=== PATIENT | female | born 1980 | race Caucasian/White ===

== ENCOUNTER → 2016-09-08 08:34 | Outpatient (CLI) | payer BC ==
[~2016-09-08 08:34] MED LIST: HYDROCODONE-APA1 TAB PO; VESTURA 3 MG-01 EACH PO; ZANTAC150 MG PO
[2016-09-08 09:39] LABS: HCG SERUM NEGATIVE (NEGATIVE)
== END | disposition home or self-care (01) ==
LOC: D.NM 08:34
PROVIDERS: Family Medicine
DX: R10.9 Unspecified abdominal pain (principal)

== ENCOUNTER 2016-10-13 06:38 | Day surgery (SDC) | payer BC ==
[~2016-10-13 06:38] MED LIST changes: -HYDROCODONE-APA1 TAB PO
[2016-10-13 07:22] LABS: BASOPHILS 0.6 % (0.0-2.0); EOSINOPHILS 2.1 % (0-7); HEMATOCRIT 37.4 % (36.0-48.0); HEMOGLOBIN 12.2 g/dL (12-16); IMMATURE GRANULOCYTES 0.4 % (0-5); LYMPHOCYTES 32.2 % (15-50); MCH 28.9 pg (26.0-34.0); MCHC 32.6 g/dL (31.0-37.0); MCV 88.6 fL (80.0-100.0); MEAN PLATELET VOLUME 10.3 fL (7.4-10.4); MONOCYTES 4.8 % (2-11); NEUTROPHILS 59.9 % (40-80); PLATELET COUNT 271 10x3/uL (130-400); RBC 4.22 10x6/uL (4.00-5.40); RDW 12.8 % (11.5-14.5); WBC 11.4 10x3/uL (4.8-10.8)
[2016-10-13 07:31] LABS: CALC OSMOLALITY 278 mosm/kg (275-300); CALCIUM 8.8 mg/dL (8.5-10.1); CHLORIDE - SERUM 105 mmol/L (98-107); CREATININE - SERUM 0.8 mg/dL (0.6-1.3); GLUCOSE 110 mg/dL (74-106); POTASSIUM - SERUM 3.9 mmol/L (3.5-5.1); SODIUM 139 mmol/L (136-145); UREA NITROGEN 13 mg/dL (7-18); eGFR NON AFRICAN AMERICAN 85 mL/min (90-120)
[2016-10-13 07:57] VITALS: BP 133/101; BMI 47.1
[2016-10-13 08:05] LABS: HCG URINE NEGATIVE (NEGATIVE)
[2016-10-13] MEDS ORDERED: HYDROCODONE-APA1 TAB PO (12:48)
--- NOTE | 2016-10-13 15:30 | NUR ---
STATES FEELS MUCH BETTER. DENIES NAUSEA, TAKING SIPS OF LIQUIDS. STATES PAIN IS BETTER. IV REMOVED INTACT. DISCHARGE INSTRUCTIONS AND RX GIVEN, VOICED UNDERSTANDING. DISCHARGED HOME VIA WC.
--- NOTE | 2016-11-08 14:51 | OP ---
PATIENT NAME: JANE HACKETT MEDICAL RECORD: [id number] :78 LOCATION:D.OPS ADMISSION DATE: SURGEON: TREVOR ACUNA MD DATE OF OPERATION: 10/13/2016 PREOPERATIVE DIAGNOSES: 1. Biliary dyskinesia. 2. Hypercholesterolemia. 3. Morbid obesity. 4. Arthritis. POSTOPERATIVE DIAGNOSES: 1. Biliary dyskinesia. 2. Hypercholesterolemia. 3. Morbid obesity. 4. Arthritis. PROCEDURE: Laparoscopic cholecystectomy. SURGEON: Trevor Acuna MD. REPORT OF PROCEDURE: The patient's abdomen was prepped and draped in sterile fashion. A cutdown was made on the superior aspect of the umbilicus, 0 Vicryls were placed on the fascia bilaterally and the fascia was incised with 15-blade. I then bluntly entered the peritoneal cavity and placed a 12-mm Fadi port. Under direct visualization, a 5-mm trocar was placed in the epigastrium and 2 more 5-mm trocars were placed in the right subcostal region. There were some inflammatory fatty adhesions around the gallbladder up against the liver. These were all teased down carefully with electrocautery and blunt dissection. At this point, I could clearly visualize the patient's gallbladder. The cystic artery and cystic duct were dissected free. These were clipped proximally and distally and ligated in standard fashion. The gallbladder was then taken off the liver bed using electrocautery and placed into an Endo Catch bag. At this point, the right upper quadrant was irrigated out with normal saline and care was taken to make sure there was no sign of any bleeding or bile leakage. At this point, the ports and insufflation were then removed and the gallbladder was taken out through the umbilicus. The umbilical fascia was closed with interrupted 0 Vicryls times 3. The wounds were irrigated out with normal saline and infused with 10 mL of 0.25% Marcaine with epinephrine. The skin incisions were all closed with subcutaneous 5-0 Monocryl and dressed appropriately. COMPLICATIONS: None. CONDITION: Stable. ANESTHESIA: General endotracheal and local. BLOOD LOSS: 30 mL. TRANSINT:[id number] Voice Confirmation ID: [id number] DOCUMENT ID: [id number] OPERATIVE REPORT [id number] HACKETTJANETREVOR JESSICA MD at 1451 CC: RENÉE SIMMONS MD [id number] DICTATION DATE: 10/13/16 1251 [facility] TRIMMER: 10/13/16 1438 [facility] SD[facility] 10/13/16 [id number] [place] [address]
== END 2016-10-13 15:30 | disposition home or self-care (01) ==
LOC: D.OPS 06:38
PROVIDERS: Surgery
DX: K82.8 Other specified diseases of gallbladder (principal); E78.00 Pure hypercholesterolemia, unspecified; K21.9 Gastro-esophageal reflux disease without esophagitis; E66.01 Morbid (severe) obesity due to excess calories; Z68.42 Body mass index [BMI] 45.0-49.9, adult; M19.90 Unspecified osteoarthritis, unspecified site

== ENCOUNTER → 2017-06-14 13:14 | Outpatient (CLI) | payer BC ==
[~2017-06-14 13:14] MED LIST changes: +HYDROCODONE-APA1 TAB PO
== END | disposition home or self-care (01) ==
LOC: D.MRI 13:14
DX: H53.8 Other visual disturbances (principal)